=== PATIENT | male | born 1965 | race African-American/Black ===

== ENCOUNTER 2020-07-07 14:33 | Emergency (ER) | payer OTHER, SELFPAY ==
[2020-07-07 14:50] VITALS: BP 142/88; PULSE 90; RESP 17; TEMP 36.7; O2SAT 98; BMI 23.8
--- NOTE | 2020-07-07 14:54 | ED_ITS ---
HPI - URI/Sore Throat General Chief Complaint: Upper Respiratory Symptoms Stated Complaint: cough Time Seen by Provider: 07/07/20 14:52 Source: patient Mode of arrival: ambulatory Limitations: no limitations History of Present Illness HPI Narrative: comes in today for COVID-19 testing. States he has had some rhinorrhea / congestion and mild dry cough since yesterday. No recent travel or sick contacts. MD elicited complaint: cough, rhinorrhea and nasal congestion Onset (ago): day(s) (1 days ) Consistency: intermittent Description of mucous: clear Associated symptoms: denies other symptoms Related Data Allergies Allergy/AdvReac Type Severity Reaction Status Date / Time No Known Allergies Allergy Unknown Verified 07/07/20 14:52 Review of Systems Review of Systems: Constitutional: No Weight loss, No Fever, No Chills, No Night Sweats, No Fatigue, No Malaise ENT/Mouth: No Hearing loss, No Ear Pain, + Nasal Congestion, No Sinus Pain, No Hoarseness, No sore throat, + Rhinorrhea, No Swallowing Difficulty Eyes: No Eye Pain, No Swelling, No Redness, No Foreign Body, No Discharge, No Vision Changes Cardiovascular: No Chest Pain, No SOB, No Dyspnea on Exertion, No Orthopnea, No Edema, No Palpitations Respiratory: No Cough, No Sputum, No Wheezing, No Dyspnea Gastrointestinal: No Nausea, No Vomiting, No Diarrhea, No Constipation, No abdominal Pain, No Hematochezia, No Melena Genitourinary: no irregular bleeding, No Dysuria, No Urinary Frequency, No Hematuria, No Urinary Incontinence, No Urgency, No Flank Pain, No Urinary Flow Changes, No Hesitancy Musculoskeletal: No joint pain, No Myalgias, No Joint Swelling Skin: No Skin Lesions, No rash Neuro: No Weakness, No Numbness, No Paresthesias, No Loss of Consciousness, No D izziness, No Headache Psych: No Social Issues Heme/Lymph: No Bruising, No Bleeding,No Lymphadenopathy Endocrine: No Polyuria, No Polydipsia, No Temperature Intolerance Yes all other systems are reviewed and are negative [facility] Past Medical History Medical History (Updated 07/07/20 @ 14:59 by Solomon Enriquez NP) No known health problems Social History Social History Advance Directives: No Advance Directives Information Provided: No Physical Exam Vital Signs: Vital Signs: Vital Signs Temp Pulse Resp BP Pulse Ox 07/07/20 14:50 98.0 F 90 17 142/88 H 98 Body Mass Index 23.8 Reviewed Const: General: cooperative and healthy appearing; No acute distress or int oxicated appearing Nutritional Appearance: average body habitus Orientation/consciousness: patient oriented x3 HENMT: Head: Yes normal to inspection Ears: hearing grossly normal bilaterally Eyes: General: appearance normal, both eyes and all related structures Visual Narvaez: normal visual narvaez by confrontation Neck: Neck: Yes normal visual inspection and No tender Thyroid: Thyroid normal Chest: Chest palpation & inspection: normal inspection of the chest Resp: Effort & Inspection: normal respiratory effort Cardio: Jugular venous distension: no JVD GI: Inspection: Yes normal to inspection Percussion: Yes normal to percussion Auscultation: normal bowel sounds : General: Yes no CVA tenderness Back/Spine/Pelvis: Back: no CVA tenderness Skin: General skin exam: no rashes or lesions noted Neuro: General: patient oriented x3 Extrem: General: Yes normal to inspection Discharge Plan Discharge Clinical Impression: Viral infection Patient Disposition: Home, Self-Care Instructions: Viral Syndrome (ED) Additional Instructions: Based on your symptoms and history we have sent a COVID-19. Although your RESULT IS PENDING at this time. ? RESULTS should return within 72 hours. ? At this time you will be contacted with either NEGATIVE OR POSITIVE results. -Please wait until we contact you for your results. At this time you will be okay for discharge. Please plan for self quarantine for up to 14 days. Do not expose yourself to others. You may not go to work. If testing does come back negative you may return to activities as long as you are no longer having any symptoms for at least 3 days. Please continue to follow cold instructions and wash your hands frequently. You may take Tylenol as directed on the bottle for pain or fever. Patient seen in the emergency department on 03/16/2020 and should be excused from work until negative test results AND until 72 hours without any symptoms AND at least 10 days have passed since symptoms first appeared or since last exposure to COVID-19 positive patient CDC Guidelines for home isolation: - Stay away from others - WEAR A MASK if you are sick AND STAY HOME - Cover your mouth and nose with a tissue when you cough or sneeze. Dispose of tissues in a lined trash can and wash your hands immediately with soap and water for at least 20 seconds. If soap and water are not available, clean hands with alcohol-based hand passenger representative that contains at least 60% alcohol. - Clean your hands often with soap and water for at least 20 seconds - Avoid touching your eyes, nose and mouth with unwashed hands - Do not share dishes, drinking glasses, cups, eating utensils, towels, or bedding with other people in your home. After using these items, wash them thoroughly with soap and water or put in the pound attendant. - Clean high-touch surfaces in your isolation area ( sick room and bathroom) every day; let a caregiver clean and disinfect high-touch surfaces in other areas of the home. Clean the area or item with soap and water or another detergent if it is dirty. Then, use a household disinfectant. - Limit contact with pets and animals: If you must care for a pet, wash your hands before and after interacting with them Referrals: ED Physician,Generic [Emergency Provider] - 2 days ( Your primary care doctor via PHONE VISIT )
== END 2020-07-07 15:25 | disposition home or self-care (01) ==
PROVIDERS: Nurse Practitioner Primary Care; Emergency Provider Emergency Medicine
DX: B34.9 Viral infection, unspecified (principal); Z20.828 Contact with and (suspected) exposure to other viral communicable diseases; R05 Cough
CPT/HCPCS: 87635; 99283

== ENCOUNTER 2023-07-06 09:11 | Emergency (ER) | payer OTHER, SELFPAY ==
[2023-07-06] VITALS (7 sets, daily range): BP systolic 126–140; BP diastolic 73–90; PULSE 51–65; RESP 16–18; TEMP 36.5–36.8; O2SAT 98–100; BMI 26.0
--- NOTE | ~2023-07-06 | XR_ITS ---
EXAMINATION: XR CHEST CLINICAL INFORMATION: Chest pain COMPARISON: Chest 04/25/2018 TECHNIQUE: Frontal view of the chest was obtained. 9:48 AM FINDINGS: No significant abnormality is noted involving the heart, lungs, mediastinum, bony thorax or soft tissues. XR/XR chest 1V IMPRESSION: No acute disease.
--- NOTE | 2023-07-06 09:14 | ECG_ITS ---
Test Reason : CHEST PAIN Blood Pressure : / mmHG Vent. Rate : 066 BPM Atrial Rate : 066 BPM P-R Int : 186 ms QRS Dur : 086 ms QT Int : 398 ms P-R-T Axes : 059 044 044 degrees QTc Int : 417 ms Normal sinus rhythm Nonspecific ST abnormality Lateral leads Borderline ECG When compared with ECG of 25-APR-2018 21:09, Heart rate has decreased Referred By: Manoj Ott Electronically Signed By:MACK LLOYD MD
--- NOTE | 2023-07-06 09:23 | PC.NURSE ---
DELAY IN EKG DUE TO PROBLEM WITH MACHINE. BIOMED NOTIFIED OF PROBLEM.
[2023-07-06 10:05] LABS: MANUAL DIFF FLAG NO
[2023-07-06 10:08] LABS: Basophils Absolute Auto 0.1 X10*3/uL (0.0-0.2); Basophils Percent Auto 0.7 % (0-2); Eosinophils Absolute Auto 0.2 X10*3/uL (0.0-0.4); Eosinophils Percent Auto 2.3 % (0-4); Hemoglobin 13.6 g/dl (14.0-18.0); Imm Gran Abs Auto 0.01 X10*3/uL (0.00-0.03); Imm Gran Pct Auto 0.1 % (0.0-0.4); Lymphocytes Percent Auto 28.2 % (20-40); Mean Corpuscular HGB Conc 33.2 g/dl (31.0-36.0); Mean Corpuscular Hemoglobin 26.8 pg (27.0-33.0); Mean Corpuscular Volume 80.9 fL (80.0-98.0); Mean Platelet Volume 9.4 fL (9.4-12.4); Monocytes Absolute Auto 0.5 X10*3/uL (0.1-1.2); Monocytes Percent Auto 7.3 % (2-11); Neutrophils Absolute Auto 4.4 x10*3/uL (2.0-8.3); Neutrophils Percent Auto 61.4 % (45-73); Platelet Count 294 X10*3/uL (160-400); Red Blood Count 5.07 X10*6/uL (4.60-5.80); Red Cell Distribution Width 14.5 % (11.0-16.0); White Blood Count 7.1 X10*3/uL (4.8-10.8)
[2023-07-06 10:21] LABS: Alanine Aminotransferase 18 U/L (0-40); Alkaline Phosphatase 84 U/L (39-117); Anion Gap 12 (12-20); Aspartate Amino Transferase 21 U/L (5-37); Bilirubin Total 0.4 mg/dL (0.0-1.0); Blood Urea Nitrogen 9 mg/dL (9-16); Carbon Dioxide 25 mmol/L (22-29); Chloride 109 mmol/L (96-108); Creatinine Clr Calc Pharmacy 56.8; Estimated Glomerular Filt Rate > 60; Glucose Random 116 mg/dL (60-115); Magnesium 2.2 mg/dL (1.6-2.6); Sodium 142 mmol/L (135-145); Total Protein 6.6 g/dL (6.5-8.0)
[2023-07-06 10:23] LABS: COVID-19 Test Negative (Negative); IDNOW Serial# BCCEAD1C
[2023-07-06 10:28] LABS: Troponin-I High Sensitivity 16.5 ng/L (<3.5-35.0)
--- NOTE | 2023-07-06 10:33 | PC.NURSE ---
PA at bedside during assessment. Pt reporting R sided chest pain starting this morning, he was able to eat his breakfast prior to coming in. Pt has GA history. He is able to talk in full sentences. stable on RA. IV placed, labs obtained and sent. awaiting further orders at this time.
[2023-07-06 10:43] LABS: INTERNATIONAL NORM RATIO 0.8 (0.9-1.1); Prothrombin Time 10.2 SEC (11.1-13.3)
[2023-07-06 10:51] LABS: D Dimer High Sensitivity < 150 NG/ML
--- NOTE | 2023-07-06 11:19 | ED.CHESTPAIN ---
HPI - Chest Pain General Chief Complaint: Chest Pain Stated Complaint: chest pain into r arm neck Time Seen by Provider: 07/06/23 09:55 Source: patient Mode of arrival: ambulatory Limitations: no limitations History of Present Illness HPI narrative: This is a 58-year-old male history of former substance abuse, MIs x4, presenting to the emergency department with complaints of sudden onset right-sided chest pain with radiation into neck and right upper extremity with mild complaints of shortness of breath, patient reports he awoke this morning with this, he reports yesterday he was fine and he was just laying around the house, watching TV no strenuous exercise, he tells me the pain is constant nature, severe, holding his chest upon history taking movement makes it worse and so does palpation, reports ? maybe he slept wrong. He reports that his right arm intermittently feels numb and at times he feels dizzy. Denies associated weakness. Denies trauma. No fevers, chills, headache, vision changes, weakness, nausea, vomiting, abdominal pain. Related Data Previous Rx's Medication Instructions Recorded cyclobenzaprine 10 mg tablet 10 mg PO BEDTIME PRN muscle spasm 07/06/23 #7 tabs ketorolac 10 mg tablet 10 mg PO TID PRN pain 5 days #15 07/06/23 tabs Allergies Allergy/AdvReac Type Severity Reaction Status Date / Time No Known Allergies Allergy Unknown Verified 07/07/20 14:52 Review of Systems Review of Systems: Constitutional : No Weight loss, No Fever, No Chills, No Fatigue, No Malaise ENT/Mouth : No sore throat, No Rhinorrhea Eyes: No Eye Pain, No Swelling, No Redness Cardiovascular : + Chest Pain, + SOB, No Dyspnea on Exertion, No Orthopnea, No Edema, No Palpitations Respiratory : No Cough, No Sputum, No Wheezing Gastrointestinal : No Nausea, No Vomiting, No Diarrhea, No Constipation, No abdominal Pain, No Hematochezia, No Melena Genitourinary : No Dysuria, No Urinary Frequency, No Hematuria, Musculoskeletal : No joint pain, No Myalgias, No Joint Swelling Skin : No Skin Lesions, No rash Neuro : No Weakness, No Numbness, + Dizziness, No Headache Psych : No Anxiety/Panic, No Depression All other systems reviewed and are negative Yes all other systems are reviewed and are negative [facility] Past Medical History Attestation statement: The following information was validated with the patient. Source: old records reviewed and nursing notes reviewed Medical History No known health problems Social History Social History Smoked in Last 30 Days: Yes Use of substances other than those prescribed or required for medical reasons: No Advance Directives: No Physical Exam Vital Signs: Vital Signs: Last Vital Signs Temp 98.2 F 07/06/23 10:02 Pulse 54 07/06/23 14:16 Resp 18 07/06/23 14:16 BP 126/81 07/06/23 14:16 Pulse Ox 98 07/06/23 14:16 O2 Del Method Room Air 07/06/23 14:16 BMI result Body Mass Index 26.0 vss Appearance: Alert.? Oriented X3.? No acute distress.? Head: Normocephalic, atraumatic, no step-offs or deformities Eyes: Pupils equal, round and reactive to light.? Neck: Normal inspection.? Neck supple.? CVS: Normal heart rate and rhythm.? Pulses normal.?+ Discomfort with palpation of right anterior chest wall all the way till the clavicle. Respiratory: No respiratory distress.? Breath sounds normal.? Abdomen: Soft and nontender.? Skin: Skin warm and dry.? Normal skin color.? Normal skin turgor.? Extremities: No lower extremity edema.? No calf ttp. 5/5 strength to bilateral upper and lower extremities Neuro: Oriented X 3.? No motor deficit.? No sensory deficit. CN 2-12 intact Course Reevaluation(s) Reevaluation #1: CBC appears to be around normal limits normocytic anemia noted likely patient's based. Chemistry unremarkable. Troponin negative x2 nonischemic EKG . Patient not compaling of CP reports CP resolved completly after toradol. Reports only painful if he presses on the affected area. D-dimer negative. COVID negative. Chest x-ray unremarkable. Patient states he is feeling well and would like to go home peer Educated patient on diagnosis and treatment plan, answered all question, patient verbalizes understanding. At this time patient will be discharged home, advised to return with new or worsening symptoms. Educated on worrisome signs and symptoms and when to return. At this time I feel comfortable discharge home. Time: 14:54 Reevaluation #2: Heart score - 1?points Low Score (0-3 points) Risk of MACE of 0.9-1.7%. Medications Administered Discontinued Medications Generic Name Dose Route Start Last Admin Trade Name Silke PRN Reason Stop Dose Admin Aspirin 324 mg 07/06/23 12:12 07/06/23 12:39 Aspirin 81 Mg Tab.Chew PO 07/06/23 12:13 324 mg ONCE ONE Administration Ketorolac Tromethamine 30 mg 07/06/23 13:45 07/06/23 14:17 Ketorolac Tromethamine 15 Mg/Ml Vial IVPUSH 07/06/23 13:46 30 mg ONCE ONE Administration Morphine Sulfate 4 mg 07/06/23 12:12 07/06/23 12:39 Morphine Sulfate 4 Mg/Ml Cartridge IVPUSH 07/06/23 12:13 4 mg ONCE ONE Administration Protocol Medical Decision Making Medical Decision Making [facility] Narrative: 1100 58-year-old male presents with complaints of chest discomfort with radiation to right-sided neck and right arm. Some associated shortness of breath. Physical exam with slight discomfort palpation to right anterior chest wall. Neurological assessment benign. Breath sounds clear. Concerns for noncardiac related chest pain versus ACS. Unlikely pulmonary embolism, endocarditis, pericarditis, myocarditis. Other differentials include musculoskeletal pain, viral illness. Unlikely pneumonia. Low suspicion for dissection. dizziness likely secondary to pain, unlikely vertigo, posterior stroke or stroke. Plan Labs, imaging, EKG. Differential Diagnosis Differential Diagnoses: The differential diagnosis associated with the presentation includes Concerns for noncardiac related chest pain versus ACS. Unlikely pulmonary embolism, endocarditis, pericarditis, myocarditis. Other differentials include musculoskeletal pain, viral illness. Unlikely pneumonia. Low suspicion for dissection. dizziness likely secondary to pain, unlikely vertigo, posterior stroke or stroke. Admission/Observation Consideration of admission/observation: Escalation of care including admission/observation considered Lab Data [facility] Lab Attestation statement: I reviewed the patient's lab results. 07/06/23 10:01 07/06/23 10:00 Labs: Lab Results 07/06/23 07/06/23 07/06/23 Range/Units 09:58 10:00 10:01 WBC 7.1 (4.8-10.8) X10*3/uL RBC 5.07 (4.60-5.80) X10*6/uL Hgb 13.6 L (14.0-18.0) g/dl Hct 41.0 L (42.0-52.0) % MCV 80.9 (80.0-98.0) fL MCH 26.8 L (27.0-33.0) pg MCHC 33.2 (31.0-36.0) g/dl RDW 14.5 (11.0-16.0) % Plt Count 294 (160-400) X10*3/uL MPV 9.4 (9.4-12.4) fL Immature Gran % (Auto) 0.1 (0.0-0.4) % Neut % (Auto) 61.4 (45-73) % Lymph % (Auto) 28.2 (20-40) % [place] % (Auto) 7.3 (2-11) % Eos % (Auto) 2.3 (0-4) % Baso % (Auto) 0.7 (0-2) % Lymph # (Auto) 2.0 (1.2-4.9) X10*3/uL [place] # (Auto) 0.5 (0.1-1.2) X10*3/uL Eos # (Auto) 0.2 (0.0-0.4) X10*3/uL Baso # (Auto) 0.1 (0.0-0.2) X10*3/uL Abs Immat Gran (auto) 0.01 (0.00-0.03) X10*3/uL Absolute Neuts (auto) 4.4 (2.0-8.3) x10*3/uL Absolute Nucleated RBC 0.000 (0.0-0.012) X10*3/uL Nucleated RBC % (auto) 0.0 (0.0-0.2) /100WBC PT (11.1-13.3) SEC INR (0.9-1.1) D-Dimer High Sensitivty NG/ML Sodium 142 (135-145) mmol/L Potassium 4.0 (3.3-5.1) mmol/L Chloride 109 H (96-108) mmol/L Carbon Dioxide 25 (22-29) mmol/L Anion Gap 12 (12-20) BUN 9 (9-16) mg/dL Creatinine 1.20 (0.5-1.4) mg/dL Estim Creat Clear Calc 56.8 Estimated GFR > 60 Random Glucose 116 H (60-115) mg/dL Calcium 9.0 (8.4-10.2) mg/dL Magnesium 2.2 (1.6-2.6) mg/dL Total Bilirubin 0.4 (0.0-1.0) mg/dL AST 21 (5-37) U/L ALT 18 (0-40) U/L Alkaline Phosphatase 84 (39-117) U/L Troponin I High Sens 16.5 (<3.5-35.0) ng/L Total Protein 6.6 (6.5-8.0) g/dL Albumin 4.0 (3.5-5.0) g/dL COVID-19 (TANK) Negative (Negative) COVID-19 Clin Com See Note 07/06/23 07/06/23 Range/Units 10:31 12:32 WBC (4.8-10.8) X10*3/uL RBC (4.60-5.80) X10*6/uL Hgb (14.0-18.0) g/dl Hct (42.0-52.0) % MCV (80.0-98.0) fL MCH (27.0-33.0) pg MCHC (31.0-36.0) g/dl RDW (11.0-16.0) % Plt Count (160-400) X10*3/uL MPV (9.4-12.4) fL Immature Gran % (Auto) (0.0-0.4) % Neut % (Auto) (45-73) % Lymph % (Auto) (20-40) % [place] % (Auto) (2-11) % Eos % (Auto) (0-4) % Baso % (Auto) (0-2) % Lymph # (Auto) (1.2-4.9) X10*3/uL [place] # (Auto) (0.1-1.2) X10*3/uL Eos # (Auto) (0.0-0.4) X10*3/uL Baso # (Auto) (0.0-0.2) X10*3/uL Abs Immat Gran (auto) (0.00-0.03) X10*3/uL Absolute Neuts (auto) (2.0-8.3) x10*3/uL Absolute Nucleated RBC (0.0-0.012) X10*3/uL Nucleated RBC % (auto) (0.0-0.2) /100WBC PT 10.2 L (11.1-13.3) SEC INR 0.8 L (0.9-1.1) D-Dimer High Sensitivty < 150 NG/ML Sodium (135-145) mmol/L Potassium (3.3-5.1) mmol/L Chloride (96-108) mmol/L Carbon Dioxide (22-29) mmol/L Anion Gap (12-20) BUN (9-16) mg/dL Creatinine (0.5-1.4) mg/dL Estim Creat Clear Calc Estimated GFR Random Glucose (60-115) mg/dL Calcium (8.4-10.2) mg/dL Magnesium (1.6-2.6) mg/dL Total Bilirubin (0.0-1.0) mg/dL AST (5-37) U/L ALT (0-40) U/L Alkaline Phosphatase (39-117) U/L Troponin I High Sens 16.2 (<3.5-35.0) ng/L Total Protein (6.5-8.0) g/dL Albumin (3.5-5.0) g/dL COVID-19 (TANK) (Negative) COVID-19 Clin Com Independent Interpretation I performed an independent interpretation of an: EKG ( Ventricular rate of 66, NM normal, QRS normal, QT / QTC normal. EKG with no ST elevations or inversions concerning for acute ischemia) and Plain X-Ray (XR/XR chest 1V IMPRESSION: No acute disease.) Radiology Impression Discussion of test interpretation with radiology: I have reviewed the radiologist's reading. Prescription Management I considered prescription management with: Pain Medication and Other (cyyclobenzaprine ) Chronic Conditions Patient?s care impacted by: Other (former cocaine abuse ( snorting)) Critical Care Time Critical Care Time Critical Care Time: No Discharge Plan Discharge Clinical Impression: Chest pain Patient Disposition: Home, Self-Care Instructions: Chest Pain (ED), Chest Wall Pain (ED) Additional Instructions: Take your medications as prescribed. If you were prescribed antibiotics today, it is important that you take your medication to their entirety, do not skip any doses, do not finish them early. Follow-up with your primary care provider this week. Return to the emergency department with new or worsening symptoms. Such as fevers, chills, chest pain, shortness of breath, nausea, vomiting, dizziness, headache, vision changes, lethargy In case of emergency call 911 Toradol has been sent to your pharmacy, you tolerated this well in the department. Please take this as prescribed do not take this with ibuprofen, or other NSAIDs, do not mix this with alcohol. Side effects of this medication including increased risk for bleeding and possible kidney injury. Prescriptions: New cyclobenzaprine 10 mg tablet 10 mg PO BEDTIME PRN (Reason: muscle spasm) Qty: 7 0RF ketorolac 10 mg tablet 10 mg PO TID PRN (Reason: pain) 5 Days Qty: 15 0RF [place] [facility] [place] [facility] [place] Group[place] - 2 days Kimberly Hylton MD [Primary Care Provider] - 2 days Stand Alone Forms: Work/School Release
[2023-07-06] MEDS: Morphine Sulfate 4 MG/ML CARTRIDGE IVPUSH (12:39)
[2023-07-06] MEDS: Aspirin 81 MG TAB.CHEW 324 MG PO (12:39)
[2023-07-06 13:01] LABS: Troponin-I High Sensitivity 16.2 ng/L (<3.5-35.0)
[2023-07-06] MEDS: Ketorolac Tromethamine 15 MG/ML VIAL 30 MG IVPUSH (14:17)
== END 2023-07-06 15:56 | disposition home or self-care (01) ==
PROVIDERS: Physician Assistant; Emergency Provider Emergency Medicine; PCP Internal Medicine
DX: R07.89 Other chest pain (principal); M54.2 Cervicalgia; R06.02 Shortness of breath; M79.601 Pain in right arm; Z11.52 Encounter for screening for COVID-19; Z20.822 Contact with and (suspected) exposure to COVID-19; Z79.899 Other long term (current) drug therapy
CPT/HCPCS: 36415; 71045; 80053; 83735; 84484; 85025; 85379; 85610; 87635; 93005; 96374; 96375; 99284; 99285; J1885; J2270

== ENCOUNTER 2024-02-29 12:16 | Emergency (ER) | payer OTHER, SELFPAY ==
[2024-02-29 14:03] VITALS: BP 117/73; PULSE 70; RESP 20; TEMP 36.3; O2SAT 99; BMI 24.0
--- NOTE | 2024-02-29 14:05 | ED_ITS ---
HPI - General Adult General Chief complaint: Abdominal Pain Stated complaint: LLQ pain Source: patient Mode of arrival: ambulatory Limitations: no limitations History of Present Illness ED Provider: Martha Villarreal PA-C HPI narrative: Patient is a 58 year old assigned male at with no reported medical history presenting to the emergency department today with left lower quadrant abdominal pain. Patient states that over the last week he has been having LLQ abdominal pain. Patient denies any dizziness, lightheadedness, nausea, vomiting, fever, chills, blurry vision, double vision, loss of vision, chest pain, difficulty breathing, shortness of breath, back pain, night sweats, pain with urination, increased urinary frequency, increased urinary urgency, blood in his urine or stool, syncope or a near syncopal episode, recent trauma or falls, bowel incontinence, bladder incontinence, or any other complaints at this time. Onset (ago): week(s) (1) Location: abdomen and left Severity: mild Severity scale (1-10): 3 Quality: aching Pain Consistency: constant Relieving factors: none Exacerbating factors: none Associated symptoms: denies other symptoms Treatments prior to arrival: none Related Data Previous Rx's ?Medication ?Instructions ?Recorded cyclobenzaprine 10 mg tablet 10 mg PO BEDTIME PRN muscle spasm 07/06/23 #7 tabs ketorolac 10 mg tablet 10 mg PO TID PRN pain 5 days #15 07/06/23 tabs Allergies Allergy/AdvReac Type Severity Reaction Status Date / Time No Known Allergies Allergy Unknown Verified 02/29/24 14:04 Review of Systems 2 Constitutional: Constitutional: Reports no additional constitutional complaints, Denies chills, Denies fever(s) and Denies night sweats Eyes: Eyes: Reports no additional eye complaints, Denies blurry vision, Denies change in vision, Denies diplopia, Denies eye discharge, Denies loss of vision and Denies eye pain ENT: Denies dizziness Cardiovascular: Cardiovascular: Reports no additional cardiovascular complaints, Denies chest pain, Denies lightheadedness, Denies Loss of Consciousness and Denies dyspnea Respiratory: Respiratory: Reports no additional respiratory complaints and Denies dyspnea Gastrointestinal: Gastrointestinal: Reports no additional gastrointestinal complaints, Reports abdominal pain (left lower quadrant), Denies melena, Denies hematochezia, Denies change in bowel habits and Denies change in stool character Genitourinary: Genitourinary: Reports no additional male genitourinary complaints, Denies hematuria, Denies oliguria, Denies difficulty urinating, Denies dysuria, Denies urinary frequency, Denies urinary hesitancy, Denies urinary incontinence and Denies urinary urgency Musculoskeletal: Musculoskeletal: Reports no additional musculoskeletal complaints, Denies numbness and Denies tingling Neurologic: Denies dizziness, Denies loss of vision, Denies numbness and Denies tingling Psychiatric: Psychiatric: Reports no additional psychiatric complaints Endocrine: Endocrine: Reports no additional endocrine complaints Hematologic/Lymphatic: Hematologic/Lymphatic: Reports no additional hematologic/lymphatic complaints Allergic/Immunologic: Allergic/Immunologic: Reports no additional allergic/immunologic complaints [facility] Past Medical History Attestation statement: The following information was validated with the patient. Source: old records reviewed and nursing notes reviewed Medical History No known health problems Social History Social History Advance Directives: No Advance Directives Information Provided: No Physical Exam ED Vital Signs: BMI result Body Mass Index 24.0 Const General: cooperative, no acute distress, alert and awake Nutritional Appearance: well nourished Orientation/consciousness: patient oriented x3 Limitations: no limitations HENMT Head: Yes normal to inspection and Yes atraumatic Ears: hearing grossly normal bilaterally and external ears normal General nose exam: Normal external nose present, no nasal discharge noted and no epistaxis Face and sinus: Yes normal facial exam, No abrasion and No laceration Mouth: Normal oral and palatal mucosa present, no drooling and no muffled voice Eyes General: appearance normal, both eyes and all related structures Periorbital: periorbital findings normal Eyelids: Yes eyelids normal Conjunctivae: conjunctivae normal Pupils: Equal, round and reactive pupils present EOM: EOMs intact bilaterally Neck Neck: Yes normal visual inspection, Yes full ROM and Yes no lymphadenopathy Chest Chest palpation & inspection: normal inspection of the chest Resp Effort & Inspection: normal respiratory effort and able to speak in complete sentences Neuro General: patient oriented x3 and moves all extremities Cranial nerves: Yes Equal, round and reactive pupils present Cognition (Neuro): normal cognition Motor exam (neuro): 5/5 motor strength present throughout Sensory Exam: Normal double simultaneous stimulation for sensation Coordination: [id number] test normal Extrem General: Yes normal to inspection, Yes full ROM and Yes capillary refill normal Psych Appearance: grossly normal Mental Status: mental status grossly normal Affect: normal affect Attitude: cooperative Thought process: Normal thought process present Thought content: Normal thought content present Insight: Good insight present (Psych) Course Course Course Narrative: RME performed by Martha Villarreal PA-C. Patient is a 58 year old assigned male at presenting to the emergency department with left lower abdominal pain. Patient states over the last week he has had left lower quadrant abdominal pain that got worse last night after standing up from sitting. Detailed physical exam and review of systems are deferred to the muffle worker. Labs and swabs ordered. Patient placed back in the waiting room pending room availability and results. Medical Decision Making Medical Decision Making [facility] Narrative: Patient is a 58 year old assigned male at with no reported medical history presenting to the emergency department today with left lower quadrant abdominal pain. Patient's limited physical exam performed in triage was unremarkable. Patient's blood work was unremarkable. Patient left the department without completing treatment. Patient left the department before myself or any of the other emergency department clinicians could explain to or review with the patient; physical exam findings, test results, need or lack there of for additional testing, need or lack there of for a procedure to be performed, need or lack there of for hospital admission / transfer, need or lack there of for prescription medication, treatment options, or a treatment plan. Differential Diagnosis Differential Diagnoses: The differential diagnosis associated with the presentation includes Abdominal pain Admission/Observation Consideration of admission/observation: Escalation of care including admission/observation considered Patient would have been admitted to the hospital had he completed his work up and it had any findings where hospital admission was appropriate, his clinical presentation warranted hospital admission, had myself or any other emergency cutting department supervisor had the ability to discuss need or lack there of for hospital admission, and the patient hadn't left the department without completing treatment. Lab Data [facility] Lab Attestation statement: I reviewed the patient's lab results. My interpretation of these results are in the MDM Rationale portion of this note. 02/29/24 14:25 02/29/24 14:25 Labs: Lab Results 02/29/24 Range/Units 14:25 WBC 4.9 (4.8-10.8) X10*3/uL RBC 5.29 (4.60-5.80) X10*6/uL Hgb 14.3 (14.0-18.0) g/dl Hct 42.3 (42.0-52.0) % MCV 80.0 (80.0-98.0) fL MCH 27.0 (27.0-33.0) pg MCHC 33.8 (31.0-36.0) g/dl RDW 14.5 (11.0-16.0) % Plt Count 331 (160-400) X10*3/uL MPV 8.6 L (9.4-12.4) fL Immature Gran % (Auto) 0.4 (0.0-0.4) % Neut % (Auto) 40.6 L (45-73) % Lymph % (Auto) 44.5 H (20-40) % [place] % (Auto) 9.8 (2-11) % Eos % (Auto) 3.7 (0-4) % Baso % (Auto) 1.0 (0-2) % Lymph # (Auto) 2.2 (1.2-4.9) X10*3/uL [place] # (Auto) 0.5 (0.1-1.2) X10*3/uL Eos # (Auto) 0.2 (0.0-0.4) X10*3/uL Baso # (Auto) 0.1 (0.0-0.2) X10*3/uL Abs Immat Gran (auto) 0.02 (0.00-0.03) X10*3/uL Absolute Neuts (auto) 2.0 (2.0-8.3) x10*3/uL Absolute Nucleated RBC 0.000 (0.0-0.012) X10*3/uL Nucleated RBC % (auto) 0.0 (0.0-0.2) /100WBC Sodium 141 (135-145) mmol/L Potassium 4.2 (3.3-5.1) mmol/L Chloride 108 (96-108) mmol/L Carbon Dioxide 28 (22-29) mmol/L Anion Gap 9 L (12-20) BUN 9 (9-16) mg/dL Creatinine 1.01 (0.5-1.4) mg/dL Estim Creat Clear Calc 67.5 Estimated GFR > 60 Random Glucose 83 (60-115) mg/dL Calcium 9.7 D (8.4-10.2) mg/dL Magnesium 2.2 (1.6-2.6) mg/dL Total Bilirubin 0.2 (0.0-1.0) mg/dL AST 15 (5-37) U/L ALT 16 (0-40) U/L Alkaline Phosphatase 107 (39-117) U/L Total Protein 7.1 (6.5-8.0) g/dL Albumin 4.1 (3.5-5.0) g/dL Influenza Type A (PCR) NEGATIVE (Negative) Influenza Type B (PCR) NEGATIVE (Negative) RSV RNA Qual (PCR) NEGATIVE (Negative) SARS-CoV-2 RNA (RT-PCR) NEGATIVE (Negative) Discharge Plan Discharge Clinical Impression: Abdominal pain Patient Disposition: Left W/O Completing Treatment Prescriptions: No Action cyclobenzaprine 10 mg tablet 10 mg PO BEDTIME PRN (Reason: muscle spasm) Qty: 7 0RF ketorolac 10 mg tablet 10 mg PO TID PRN (Reason: pain) 5 Days Qty: 15 0RF Discharge Date/Time: 02/29/24 21:21
[2024-02-29 14:29] LABS: MANUAL DIFF FLAG NO
[2024-02-29 14:32] LABS: Basophils Absolute Auto 0.1 X10*3/uL (0.0-0.2); Eosinophils Absolute Auto 0.2 X10*3/uL (0.0-0.4); Eosinophils Percent Auto 3.7 % (0-4); Hematocrit 42.3 % (42.0-52.0); Hemoglobin 14.3 g/dl (14.0-18.0); Imm Gran Abs Auto 0.02 X10*3/uL (0.00-0.03); Imm Gran Pct Auto 0.4 % (0.0-0.4); Lymphocytes Absolute Auto 2.2 X10*3/uL (1.2-4.9); Lymphocytes Percent Auto 44.5 % (20-40); Mean Corpuscular HGB Conc 33.8 g/dl (31.0-36.0); Mean Platelet Volume 8.6 fL (9.4-12.4); Monocytes Absolute Auto 0.5 X10*3/uL (0.1-1.2); Monocytes Percent Auto 9.8 % (2-11); Neutrophils Percent Auto 40.6 % (45-73); Platelet Count 331 X10*3/uL (160-400); Red Blood Count 5.29 X10*6/uL (4.60-5.80); Red Cell Distribution Width 14.5 % (11.0-16.0); White Blood Count 4.9 X10*3/uL (4.8-10.8)
[2024-02-29 14:57] LABS: Alanine Aminotransferase 16 U/L (0-40); Albumin Level 4.1 g/dL (3.5-5.0); Alkaline Phosphatase 107 U/L (39-117); Anion Gap 9 (12-20); Aspartate Amino Transferase 15 U/L (5-37); Bilirubin Total 0.2 mg/dL (0.0-1.0); Blood Urea Nitrogen 9 mg/dL (9-16); Calcium 9.7 mg/dL (8.4-10.2); Carbon Dioxide 28 mmol/L (22-29); Chloride 108 mmol/L (96-108); Creatinine Clr Calc Pharmacy 67.5; Estimated Glomerular Filt Rate > 60; Glucose Random 83 mg/dL (60-115); Magnesium 2.2 mg/dL (1.6-2.6); Potassium 4.2 mmol/L (3.3-5.1); Sodium 141 mmol/L (135-145); Total Protein 7.1 g/dL (6.5-8.0)
[2024-02-29 15:11] LABS: Influenza A PCR NEGATIVE (Negative); Influenza B PCR NEGATIVE (Negative); Resp Syncy Virus RNA Qual PCR NEGATIVE (Negative); SARS COV2 PCR INHOUSE NEGATIVE (Negative)
== END 2024-02-29 21:21 | disposition left against medical advice (07) ==
PROVIDERS: Physician Assistant Medical; Emergency Provider Emergency Medicine; PCP Internal Medicine
DX: R10.32 Left lower quadrant pain (principal)
CPT/HCPCS: 0241U; 80053; 83735; 85025; 99281; 99283

== ENCOUNTER 2024-03-09 08:38 | Outpatient (AMB) | payer OTHER, SELFPAY ==
--- NOTE | 2024-03-09 09:07 | MHC.PC.OV ---
Vital Signs 03/09/24 09:09 Height 5 ft 4 in BP 124/72 Blood Pressure Location Lt brachial Position Sitting Pulse 69 Pulse Source Pulse Oximeter Intake Visit Reasons: [facility] Intake Note: Patient is a new patient here to establish care for Abdpmenial pain, Hx of cocaine use, hx of heart attack. Transferring care from unknown. Medical records have not been requested and have not received. Clay Modeler Required: No Automatic Chief: Not Required per policy Accompanied by: Self / Same As Patient Allergies No Known Allergies Allergy (Unknown, Verified 03/09/24 09:08) Medication List - Last Reconciled 03/09/24 by Miguel Victor MD cyclobenzaprine 10 mg PO BEDTIME PRN ketorolac 10 mg PO TID PRN 5 days Tobacco use date assessed: 03/09/24 Dental Screening Dental Screen Date: 03/09/24 Did you have a dental visit in the last 12 months?: Yes Did you have a dental problem in the last 6 months where you did not have access to dental care?: No Was dental information given to patient?: Patient has dentist HPI [facility] HPI Details 58-year-old male presents to the office to establish his care. He was seeing Dr. Hoang till 2018. He would like to reestablish his care. Past medical history significant for substance use disorder and cardiovascular disease. Patient is no longer using cocaine. He has had 3 heart attacks in the remote past. Currently on no medications for the same. Two weeks ago complaining of abdominal pain and went to the emergency room. Blood work was done but patient did not state due to the long wait. Pain symptoms are better. Regular bowel movements. Normal appetite. No loss of weight. Patient had a colonoscopy earlier than 2017. Continues to smoke 10 cigarettes a day. [facility] Medical History (Updated 03/09/24 @ 10:00 by Miguel Victor MD) Coronary artery disease Tobacco use disorder Substance use disorder Social History Patient Tobacco Use Status: Never used Tobacco e-Cigarette/Vaping Use: Never Used Second Hand Smoke Exposure: No service: No Physical exam (Primary Care) Vital Signs: Last Vital Signs Pulse 69 03/09/24 09:09 BP 124/72 03/09/24 09:09 Care Plan Goal for BP management: Blood pressure is in range. Tobacco/Smoking Status: Tobacco use Status Tobacco use date assessed 03/09/24 03/09/24 09:10 Patient Tobacco Use Status Never used Tobacco 03/09/24 09:10 e-Cigarette/Vaping Use Never Used 03/09/24 09:10 Const General: cooperative and healthy appearing Nutritional Appearance: well nourished Orientation/consciousness: patient oriented x3 Limitations: no limitations HENMT Head: Yes normal to inspection Eyes General: appearance normal, both eyes and all related structures Neck Neck: Yes normal visual inspection Chest Chest palpation & inspection: normal palpation of entire chest wall Resp Effort & Inspection: normal respiratory effort Other: Abdomen: Bowel sounds positive. No organomegaly. Mass palpable in the left lower quadrant, firm consistency. Neuro General: patient oriented x3 Assessment and Plan Assessment & Plan (1) Coronary artery disease: Code(s): I25.10 - Atherosclerotic heart disease of [place] coronary artery without angina pectoris Plan: Statin added to the regimen. Blood work has been ordered. Will call with the results. (2) Tobacco use disorder: Code(s): F17.200 - Nicotine dependence, unspecified, uncomplicated Plan: Counseling to quit smoking done. (3) Substance use disorder: Code(s): F19.90 - Other psychoactive substance use, unspecified, uncomplicated Plan: Patient is currently not abusing any drugs. (4) Left lower quadrant abdominal mass: Code(s): R19.04 - Left lower quadrant abdominal swelling, mass and lump Plan: An ultrasound of the abdomen has been requested. Inflammatory markers have been requested. Orders: Orders Thyroid Stimulating Hormone Today R19.04 - Left lower quadrant abdominal swelling, mass and lump US abdomen complete Today R19.04 - Left lower quadrant abdominal swelling, mass and lump Erythrocyte Sedimentation Rate Today R19.04 - Left lower quadrant abdominal swelling, mass and lump C Reactive Protein Today R19.04 - Left lower quadrant abdominal swelling, mass and lump UA and rflx microscopic Today R19.04 - Left lower quadrant abdominal swelling, mass and lump Coding Level of Care Code New Pt Level 4 (78421) Complex EM visit Add On G2211 Diagnoses Coronary artery disease I25.10 Tobacco use disorder F17.200 Substance use disorder F19.90 Left lower quadrant abdominal mass R19.04
[2024-03-09 09:09] VITALS: BP 124/72; PULSE 69
== END 2024-03-09 10:32 | disposition home or self-care (01) ==
LOC: HO.HMGH 08:38
PROVIDERS: PCP Internal Medicine; Visit Provider Internal Medicine
DX: I25.10 Atherosclerotic heart disease of native coronary artery without angina pectoris (principal); F17.200 Nicotine dependence, unspecified, uncomplicated; F19.90 Other psychoactive substance use, unspecified, uncomplicated; R19.04 Left lower quadrant abdominal swelling, mass and lump
CPT/HCPCS: 99204; G2211

== ENCOUNTER 2024-03-23 07:34 | Outpatient (REF) | payer OTHER, SELFPAY ==
--- NOTE | ~2024-03-23 | US_ITS ---
EXAMINATION: US ABDOMEN LIMITED CLINICAL INFORMATION: Left lower quadrant pain. Mass.. COMPARISON: None available. TECHNIQUE: Targeted sonography left lower quadrant. FINDINGS: Scanning in the area of palpable concern shows a small lymph node at 10 x 4 mm. No evidence for fluid collections or a hernia. US/US abdomen limited IMPRESSION: No hernia seen.
[2024-03-23 09:09] LABS: Erythrocyte Sedimentation Rate 4 MM/HR (0-15)
[2024-03-23 09:17] LABS: C Reactive Protein 0.71 mg/dL (< or = 0.50)
[2024-03-23 09:24] LABS: Thyroid Stimulating Hormone 1.38 uIU/mL (0.32-4.0)
[2024-03-23 09:40] LABS: Appearance Urine Clear; Color Urine Yellow; Glucose Urine UA Negative (Negative); Leukocyte Esterase Urine Negative (Negative); Nitrite Urine Negative (Negative); Specific Gravity - Urine >= 1.030 (1.005-1.025); Urine Blood Negative (Negative); Urine Ketones 15 mg/dL (Negative); Urine Protein Trace mg/dL (Neg-Trace)
== END 2024-03-23 07:35 | disposition home or self-care (01) ==
LOC: HO.US 07:34
PROVIDERS: PCP Internal Medicine; Visit Provider Internal Medicine
DX: R19.04 Left lower quadrant abdominal swelling, mass and lump (principal)
CPT/HCPCS: 36415; 76705; 81003; 84443; 85652; 86140

== ENCOUNTER 2024-05-11 06:47 | Outpatient (REF) | payer OTHER, SELFPAY ==
--- NOTE | ~2024-05-11 | CT_ITS ---
EXAMINATION: CT ABDOMEN AND PELVIS WITH CONTRAST CLINICAL INFORMATION: Abdominal pain and mass, rule out hernia COMPARISON: February 17, 2018 and recent abdominal ultrasound TECHNIQUE: Multidetector volumetric images were obtained from the superior aspect of the liver through the pubic symphysis following administration 85 mL of Omnipaque 350 intravenous contrast. Sagittal and coronal reformatted images were obtained on the technologist's workstation. Oral contrast administered to toe also. Oral contrast: No This CT examination was performed using dose optimization techniques as appropriate, variously including the following: *Automated exposure control *Adjustment of mA and/or kV according to patient size (this includes techniques or standardized protocols for targeted exams where dose is matched to indication/reason for exam; i.e. extremities or head) *Use of iterative reconstruction technique DLP: 219 mGy-cm FINDINGS: LUNG BASES: The visualized lung bases are unremarkable. LIVER, GALLBLADDER, AND BILIARY TREE: The liver is normal in size, shape, and attenuation. No focal hepatic lesion or biliary ductal dilatation is present. The gallbladder is unremarkable with no evidence of radiopaque gallstones, gallbladder wall thickening, or obvious pericholecystic inflammatory changes. PANCREAS: Unremarkable. SPLEEN: Unremarkable. ADRENAL GLANDS: Unremarkable. KIDNEYS AND URETERS: The kidneys are normal in size, shape, and attenuation. No hydronephrosis, hydroureter, or calculi seen. No perinephric stranding. BLADDER: Unremarkable. GASTROINTESTINAL TRACT: The small and large bowel are unremarkable. The appendix is unremarkable. ABDOMINAL WALL: No significant hernia is appreciated. LYMPH NODES: Normal. VASCULAR: Unremarkable. PELVIC VISCERA: Unremarkable. OSSEOUS STRUCTURES: Unremarkable. CT/CT abdomen pelvis w IV con IMPRESSION: No significant abnormality. Fleischner guidelines were followed. Electronically signed by: Dorita Argueta MD 05/11/2024 03:29 PM EDT
[2024-05-11] MEDS: iohexoL 350 MG/ML 75 ML INFUS..BTL 85 ML IV (09:31)
[2024-05-11] MEDS: Barium Sulfate Oral (Mocha) 450 ML ORAL.SUSP 900 ML PO (09:32)
[2024-05-11 14:16] LABS: Creatinine POC 1.4 mg/dL (0.5-1.4); GFR POC 56
== END 2024-05-11 06:48 | disposition home or self-care (01) ==
LOC: HO.CT 06:47
PROVIDERS: PCP Internal Medicine; Visit Provider Internal Medicine
DX: R19.04 Left lower quadrant abdominal swelling, mass and lump (principal)
CPT/HCPCS: 74177; 82565; Q9967

== ENCOUNTER 2024-05-16 15:04 | Outpatient (AMB) | payer OTHER, SELFPAY ==
[2024-05-16 15:18] VITALS: BP 110/80; PULSE 81; O2SAT 97; BMI 23.3
--- NOTE | 2024-05-16 15:18 | MHC.PC.OV ---
Vital Signs 05/16/24 15:18 Height 5 ft 4 in Weight 136 lb BMI 23.3 BP 110/80 Blood Pressure Location Lt brachial Position Sitting Pulse 81 Pulse Source Pulse Oximeter Pulse Oximetry (%) 97 Oxygen Delivery Method Room Air Intake Visit Reasons: Discuss CT Results and Plan Instructional Media Services Technician Required: No Accompanied by: Self / Same As Patient Allergies No Known Allergies Allergy (Unknown, Verified 05/16/24 15:19) Tobacco use date assessed: 05/16/24 Dental Screening Dental Screen Date: 05/16/24 Did you have a dental visit in the last 12 months?: Yes Did you have a dental problem in the last 6 months where you did not have access to dental care?: No Was dental information given to patient?: Patient has dentist HPI Discuss CT Results and Plan HPI Details 58-year-old male presents to the office to discuss his chronic medical condition. In the last office visit, patient had presented with a swelling in the abdomen and minimal weight loss. An ultrasound and CT scan was done which have been unremarkable. Patient reports that he no longer feels the swelling. He has no further weight loss. His appetite is normal. Able to function for the same strength and energy. No nausea or vomiting. No change in bowel habits. [facility] Medical History (Updated 03/09/24 @ 10:00 by Miguel Victor MD) Coronary artery disease Tobacco use disorder Substance use disorder Social History Housing: House Patient Tobacco Use Status: Never used Tobacco e-Cigarette/Vaping Use: Never Used Second Hand Smoke Exposure: No service: No Cognitive needs: No Hearing needs: No Vision needs: No Questionnaire PHQ-9 Over the last 2 weeks, how often have you been bothered by any of the following problems? 1. Little interest or pleasure in doing things: not at all 2. Feeling down, depressed, or hopeless: not at all 3. Trouble falling or staying asleep, or sleeping too much: not at all 4. Feeling tired or having little energy: not at all 5. Poor appetite or overeating: not at all 6. Feeling bad about yourself - or that you are a failure or have let yourself or your family down: not at all 7. Trouble concentrating on things, such as reading the newspaper or watching television: not at all 8. Moving or speaking so slowly that other people could have noticed. Or the opposite - being so fidgety or restless that you have been moving around a lot more than usual: not at all 9. Thoughts that you would be better off or of hurting yourself in some way: not at all Total score: 0 Source: Developed by Drs. Elliott Saha, Yomaira Foy, Hill Summers and colleagues, with an educational mariann from [employer]. Thrive Questionnaire Date Thrive assessed: 05/16/24 I am a: Patient What is your living situation today?: I have a steady place to live Within the past 12 months, did the food you bought not last and you didn't have the money to get more?: Never true Within the past 12 months, did you worry whether your food would run out before you got money to buy more?: Never true Do you have trouble paying for medicines?: No Do you have trouble getting transportation to medical appointments?: No Do you have trouble paying your heating and electricity bill?: No Do you have trouble taking care of your child, family member or friend?: No Do you have trouble with day-to-day activities such as bathing, preparing meals, shopping, managing finances, etc.?: No Are you currently unemployed and looking for a job?: No Are you interested in more education?: No Please select the resources that you would like help with: None Currently or been in a relationship where the following occur: No concerns reported THRIVE Score: 0 AUDIT C Alcohol Use Questionnaire (AUDIT-C) 1. How often do you have a drink containing alcohol?: Never Total Score: 0 CRYSTAL-7 AMB Questionnaire CRYSTAL-7 Date CRYSTAL - 7 assessed: 05/16/24 Feeling nervous, anxious, or on edge: 0 = Not at all Not being able to stop or control worryin = Not at all Worrying too much about different things: 0 = Not at all Trouble relaxin = Not at all Being so restless that it is hard to sit still: 0 = Not at all Becoming easily annoyed or irritable: 0 = Not at all Feeling afraid as if something awful might happen: 0 = Not at all Total CRYSTAL-7 score (0-4 normal; 5-9 mild; 10-14 moderate; 15-21 severe): 0 Source: Developed by Drs. Elliott Saha, Yomaira Foy, Hill Summers and colleagues, with an educational mariann from [employer]. Physical exam (Primary Care) Vital Signs: Last Vital Signs Pulse 81 05/16/24 15:18 BP 110/80 05/16/24 15:18 Pulse Ox 97 05/16/24 15:18 Oxygen Delivery Method Room Air 05/16/24 15:18 BMI result Body Mass Index 23.3 Tobacco/Smoking Status: Tobacco use Status Tobacco use date assessed 05/16/24 05/16/24 15:22 Patient Tobacco Use Status Never used Tobacco 05/16/24 15:22 e-Cigarette/Vaping Use Never Used 05/16/24 15:22 PHQ-9: PHQ-9 Score PHQ-9: Total score 0 05/16/24 15:56 Thrive Assessment: Date of Thrive Assessment Date Thrive assessed 05/16/24 05/16/24 15:22 Currently or been in a relationship where the following occur: No concerns reported Const General: cooperative and healthy appearing Nutritional Appearance: well nourished Orientation/consciousness: patient oriented x3 Limitations: no limitations HENMT Head: Yes normal to inspection Eyes General: appearance normal, both eyes and all related structures Neck Neck: Yes normal visual inspection Chest Chest palpation & inspection: normal palpation of entire chest wall Resp Effort & Inspection: normal respiratory effort Neuro General: patient oriented x3 Assessment and Plan Assessment & Plan (1) Left lower quadrant abdominal mass: Code(s): R19.04 - Left lower quadrant abdominal swelling, mass and lump Plan: The lump is no longer palpable. CT scan an ultrasound of the area is unremarkable. Blood work is unremarkable. Patient was reassured. Coding Level of Care Code Est Pt Level 3 (10568) Diagnoses Left lower quadrant abdominal mass R19.04
== END 2024-05-16 16:13 | disposition home or self-care (01) ==
PROVIDERS: PCP Internal Medicine; Visit Provider Internal Medicine
DX: R19.04 Left lower quadrant abdominal swelling, mass and lump (principal)
CPT/HCPCS: 99213

== ENCOUNTER 2024-11-28 09:15 | Emergency (ER) | payer OTHER, SELFPAY ==
--- NOTE | ~2024-11-28 | CT_ITS ---
EXAMINATION: CT CHEST ANGIOGRAPHY WITH IV CONTRAST, CT ABDOMEN PELVIS ANGIOGRAPHY WITH IV CONTRAST INDICATION: chest pain with back pain r/o dissection COMPARISON: Comparison is made with the prior CT of the abdomen and pelvis dated 05/11/2024.. TECHNIQUE: CT scan of the chest, abdomen and pelvis was performed following administration of 80 mL Omnipaque 350 using standard departmental protocol. Images were obtained in the arterial phase to evaluate for dissection. Coronal and sagittal reformatted images were generated and reviewed. Oral contrast material was not administered at the request of the referring physician. This CT exam was performed with one or more of the following dose reduction techniques: automated exposure control, adjustment of the mA and/or kV according to patient size, use of iterative reconstruction technique. DLP: 107 mGy-cm CHEST: THYROID: The thyroid is unremarkable. LUNGS: There is a subcentimeter nodule along the right major fissure (series 6, image 30) compatible with an intrapulmonary lymph node. Minimal scarring is seen. Left lung base. The lungs are otherwise clear. MEDIASTINUM: There is no mediastinal lymphadenopathy. XANDER: There is no hilar lymphadenopathy. CARDIOVASCULATURE: The heart is normal in size. There is no pericardial effusion. The thoracic aorta is normal in caliber. No intimal flap is seen to suggest dissection. DEGREE OF CORONARY CALCIFICATION: not evaluable, due to dense contrast material the coronary arteries. PLEURA: There is no pleural effusion. No pneumothorax. MAIN AIRWAYS: The mainstem bronchi and proximal branches are patent. AXILLA: There is no axillary lymphadenopathy. SOFT TISSUES: Unremarkable. BONES: The bones are intact. ABDOMEN: LIVER: The liver is normal in size and contour. No liver mass is identified. GALLBLADDER / BILE DUCTS: The gallbladder is unremarkable. There is no intra or extrahepatic biliary ductal dilatation. SPLEEN: The spleen is normal in size. No focal splenic lesion is identified. PANCREAS: The pancreas is unremarkable in appearance. ADRENAL GLANDS: Within normal limits. KIDNEYS/RETROPERITONEUM: No renal calculi are identified. There is no hydronephrosis. No renal masses are identified. LYMPH NODES: No abdominal or pelvic lymphadenopathy. VASCULATURE: The abdominal aorta is normal in caliber without evidence of aneurysm or dissection. The celiac axis, superior mesenteric artery, inferior mesenteric artery, and bilateral renal arteries are widely patent. MESENTERY/PERITONEUM: No free fluid. No masses. There is no free intraperitoneal gas. STOMACH: The stomach is collapsed, limiting evaluation. SMALL BOWEL: The small bowel is normal in caliber. COLON: There is a large amount of stool throughout the colon. APPENDIX: Normal. URINARY BLADDER/PELVIC ORGANS: The urinary bladder is unremarkable. The uterus and ovaries are unremarkable. BONES / SOFT TISSUES: No suspicious bony or soft tissue abnormalities. CT/CT angio abdomen pelvis IMPRESSION: 1. No evidence of thoracoabdominal aortic dissection. 2. Large amount of stool throughout the colon. Electronically signed by: Elliott Gomez MD 11/28/2024 01:52 PM EDT
--- NOTE | 2024-11-28 09:18 | ECG_ITS ---
Test Reason : chest pain Blood Pressure : */* mmHG Vent. Rate : 85 BPM Atrial Rate : 85 BPM P-R Int : 158 ms QRS Dur : 86 ms QT Int : 350 ms P-R-T Axes : 33 49 41 degrees QTcB Int : 416 ms Normal sinus rhythm Moderate voltage criteria for LVH, may be normal variant ( Sokolow-Fiore , [employer]ej[employer] product ) Borderline ECG When compared with ECG of 06-Jul-2023 09:26, No significant change was found Referred By: Generic ED Physician Electronically Signed By: ALEXA CEBALLOS
[2024-11-28 09:20] VITALS: BP 108/69; BP 129/79; PULSE 83; PULSE 96; RESP 18; TEMP 36.4; O2SAT 96; O2SAT 98; BMI 24.0
[2024-11-28 09:40] LABS: MANUAL DIFF FLAG NO
[2024-11-28 09:42] LABS: Basophils Absolute Auto 0.1 X10*3/uL (0.0-0.2); Basophils Percent Auto 0.6 % (0-2); Eosinophils Absolute Auto 0.1 X10*3/uL (0.0-0.4); Eosinophils Percent Auto 0.8 % (0-4); Hematocrit 39.7 % (42.0-52.0); Hemoglobin 13.5 g/dl (14.0-18.0); Imm Gran Abs Auto 0.02 X10*3/uL (0.00-0.03); Imm Gran Pct Auto 0.2 % (0.0-0.4); Lymphocytes Absolute Auto 1.9 X10*3/uL (1.2-4.9); Lymphocytes Percent Auto 21.6 % (20-40); Mean Corpuscular Hemoglobin 26.2 pg (27.0-33.0); Mean Corpuscular Volume 77.1 fL (80.0-98.0); Mean Platelet Volume 8.6 fL (9.4-12.4); Monocytes Absolute Auto 0.8 X10*3/uL (0.1-1.2); Monocytes Percent Auto 9.7 % (2-11); Neutrophils Absolute Auto 5.8 x10*3/uL (2.0-8.3); Neutrophils Percent Auto 67.1 % (45-73); Platelet Count 319 X10*3/uL (160-400); Red Blood Count 5.15 X10*6/uL (4.60-5.80); Red Cell Distribution Width 13.6 % (11.0-16.0); White Blood Count 8.7 X10*3/uL (4.8-10.8)
[2024-11-28 09:58] LABS: Alanine Aminotransferase 18 U/L (0-40); Albumin Level 3.8 g/dL (3.5-5.0); Alkaline Phosphatase 121 U/L (39-117); Anion Gap 11 (12-20); Aspartate Amino Transferase 14 U/L (5-37); Bilirubin Total 0.4 mg/dL (0.0-1.0); Blood Urea Nitrogen 6 mg/dL (9-16); Calcium 9.2 mg/dL (8.4-10.2); Carbon Dioxide 22 mmol/L (22-29); Chloride 109 mmol/L (96-108); Estimated Glomerular Filt Rate > 60; Glucose Random 154 mg/dL (60-115); Potassium 4.1 mmol/L (3.3-5.1); Sodium 138 mmol/L (135-145); Total Protein 7.1 g/dL (6.5-8.0)
[2024-11-28 10:06] LABS: Troponin-I High Sensitivity 16.2 ng/L (<3.5-35.0)
--- NOTE | 2024-11-28 11:08 | ED_ITS ---
HPI - Chest Pain General Chief Complaint: Chest Pain Stated Complaint: CHEST/NECK/BACK PAIN X2D,WORSE W/BREATH PER EMS Time Seen by Provider: 11/28/24 10:23 Source: patient Mode of arrival: EMS Limitations: no limitations History of Present Illness HPI narrative: 59 year old male PMH: former substance abuse, MIs x4 who presents to the ER with 2 days of neck and upper shoulder pain on the left side 8/10 worse with a deep breath. Patient states he has had heart attacks in the past but has been here for similar without any concerns for his heart. The patient states he woke up with a pain in his reproducible with certain movements and taking a deep breath he denies history of dissection he denies any falls or injuries he denies nausea vomiting or diarrhea. MD complaint: chest pain Related Data Previous Rx's ?Medication ?Instructions ?Recorded cyclobenzaprine 10 mg tablet 10 mg PO BEDTIME PRN muscle spasm 07/06/23 #7 tabs ketorolac 10 mg tablet 10 mg PO TID PRN pain 5 days #15 07/06/23 tabs atorvastatin 10 mg tablet 10 mg PO BEDTIME #90 tabs 03/09/24 Allergies Allergy/AdvReac Type Severity Reaction Status Date / Time No Known Allergies Allergy Unknown Verified 11/28/24 09:28 Review of Systems 2 Review of Systems: Review of systems: General: Patient denies any fever chills recent illness or falls Musculoskeletal: back pain denies any or body aches or other injuries HEENT: denies headache, runny nose, ear pain Respiratory: denies shortness of breath, cough Cardiovascular:chest pain no palpitations : denies dysuria, frequency Abdomen: no nausea vomiting denies abdominal pain Extremities: no swelling, no pain Skin: no diaphoresis Yes all other systems are reviewed and are negative [facility] Past Medical History Medical History (Updated 11/28/24 @ 14:02 by Fidencio Argueta DO) Coronary artery disease Tobacco use disorder Substance use disorder Social History Social History Housing: House Patient Tobacco Use Status: Never used Tobacco e-Cigarette/Vaping Use: Never Used Second Hand Smoke Exposure: No Advance Directives: No Advance Directives Information Provided: Yes service: No Cognitive needs: No Hearing needs: No Vision needs: No Physical Exam 2 Vital Signs: Vital Signs: Last Vital Signs Temp 98.6 F 11/28/24 13:20 Pulse 16 L 11/28/24 13:20 Resp 16 11/28/24 13:20 BP 106/64 11/28/24 13:20 Pulse Ox 97 11/28/24 13:20 O2 Del Method Room Air 11/28/24 13:20 BMI result Body Mass Index 24.0 Neurological exam: CN II- XII tested. Patient is alert and oriented to person place and time. Patient has no dysphagia or dysarthia, denies good vision in all four vision narvaez no nystagmus on exam, good strength to upper and lower extremities with normal reflexes to brachioradialis, wrist, patella and achilles. Negative romberg, good finger to nose and heel to jiménez. General: Well-appearing well-nourished in no signs of distress HEENT: Normocephalic atraumatic Neck: No signs of JVD, no masses no tenderness or lymphadenopathy Cardiovascular: Regular rate and rhythm Respiratory: Clear to auscultation bilaterally Abdomen: Soft nontender no masses Extremities: Normal pedal pulses no signs of edema Skin: Dry warm no rashes Back: No tenderness full ROM Course Reevaluation(s) Reevaluation #1: CT is negative patient is sleeping comfortably in the room I did explain his CT results patient is just pending his 2nd troponin which will be drawn at this time. Time: 14:00 Reevaluation #2: Repeat troponin is negative I do feel comfortable discharging the patient home he is happy with the plan to follow up Time: 14:57 Medications Administered Discontinued Medications Generic Name Dose Route Start Last Admin Trade Name Silke PRN Reason Stop Dose Admin Acetaminophen 650 mg 11/28/24 11:14 11/28/24 11:34 Acetaminophen 325 Mg Tablet PO 11/28/24 11:15 650 mg ONCE ONE Administration Sodium Chloride 1,000 mls @ 999 mls/hr 11/28/24 11:15 11/28/24 11:36 Ns IV 11/28/24 12:15 999 mls/hr .Q1H1M RJ Administration Iohexol 100 ml 11/28/24 13:25 11/28/24 13:25 Iohexol 350 Mg/Ml 100 Ml Infus..Btl IV 11/28/24 13:26 80 ml ONCE ONE Administration Ketorolac Tromethamine 15 mg 11/28/24 11:14 11/28/24 11:36 Ketorolac Tromethamine 15 Mg/Ml Vial IVPUSH 11/28/24 11:15 15 mg ONCE ONE Administration Lidocaine 1 patch 11/28/24 11:31 11/28/24 11:43 Lidocaine 4 % Patch Adh..Patch TRANSDERMA 11/28/24 11:32 1 patch ONCE ONE Administration Protocol Medical Decision Making Medical Decision Making [facility] Narrative: You think this is more likely back pain pain is reproducible patient looks otherwise well has coronary artery disease history but is fidgety and appears to be in pain has not tried Tylenol ibuprofen up to this point I will treat the patient with Tylenol Toradol fluids as well as a lidocaine patch I will get a 2nd troponin send the patient for a CTA dissection protocol Differential Diagnosis Differential Diagnoses: The differential diagnosis associated with the presentation includes Back strain back pain coronary disease he is on the differential though less likely as the patient looks very well and has a normal EKG aortic dissection is also in the differential pneumonia COVID flu RSV body aches Lab Data [facility] Lab Attestation statement: I reviewed the patient's lab results. 11/28/24 09:30 11/28/24 09:30 Labs: Lab Results 11/28/24 11/28/24 Range/Units 09:30 14:04 WBC 8.7 (4.8-10.8) X10*3/uL RBC 5.15 (4.60-5.80) X10*6/uL Hgb 13.5 L (14.0-18.0) g/dl Hct 39.7 L (42.0-52.0) % MCV 77.1 L (80.0-98.0) fL MCH 26.2 L (27.0-33.0) pg MCHC 34.0 (31.0-36.0) g/dl RDW 13.6 (11.0-16.0) % Plt Count 319 (160-400) X10*3/uL MPV 8.6 L (9.4-12.4) fL Immature Gran % (Auto) 0.2 (0.0-0.4) % Neut % (Auto) 67.1 (45-73) % Lymph % (Auto) 21.6 (20-40) % [place] % (Auto) 9.7 (2-11) % Eos % (Auto) 0.8 (0-4) % Baso % (Auto) 0.6 (0-2) % Lymph # (Auto) 1.9 (1.2-4.9) X10*3/uL [place] # (Auto) 0.8 (0.1-1.2) X10*3/uL Eos # (Auto) 0.1 (0.0-0.4) X10*3/uL Baso # (Auto) 0.1 (0.0-0.2) X10*3/uL Abs Immat Gran (auto) 0.02 (0.00-0.03) X10*3/uL Absolute Neuts (auto) 5.8 (2.0-8.3) x10*3/uL Absolute Nucleated RBC 0.000 (0.0-0.012) X10*3/uL Nucleated RBC % (auto) 0.0 (0.0-0.2) /100WBC Sodium 138 (135-145) mmol/L Potassium 4.1 (3.3-5.1) mmol/L Chloride 109 H (96-108) mmol/L Carbon Dioxide 22 (22-29) mmol/L Anion Gap 11 L (12-20) BUN 6 L (9-16) mg/dL Creatinine 0.91 (0.5-1.4) mg/dL Estim Creat Clear Calc 74.0 Estimated GFR > 60 Random Glucose 154 H (60-115) mg/dL Calcium 9.2 (8.4-10.2) mg/dL Magnesium 2.0 (1.6-2.6) mg/dL Total Bilirubin 0.4 (0.0-1.0) mg/dL AST 14 (5-37) U/L ALT 18 (0-40) U/L Alkaline Phosphatase 121 H (39-117) U/L Troponin I High Sens 16.2 14.5 (<3.5-35.0) ng/L Total Protein 7.1 (6.5-8.0) g/dL Albumin 3.8 (3.5-5.0) g/dL Influenza Type A (PCR) NEGATIVE (Negative) Influenza Type B (PCR) NEGATIVE (Negative) RSV RNA Qual (PCR) NEGATIVE (Negative) SARS-CoV-2 RNA (RT-PCR) NEGATIVE (Negative) Independent Interpretation I performed an independent interpretation of an: EKG Interpretation: Rate 85 EKGs slightly different than previous with some hyperacute T-waves in V3 compared to old ones but otherwise does not show any other obvious EKG changes old man 1 lead I will treat the patient and reassess. Discharge Plan Discharge Clinical Impression: Atypical chest pain, Back pain Patient Disposition: Home, Self-Care Instructions: Chest Pain (DC), Back Pain (ED) Additional Instructions: You were seen today for back pain and chest pain. You had CTs done of the chest abdomen and pelvis which did not show any abnormality other than a large stool burden meaning your likely constipated. You also had labs done which did not show any signs of ischemia or affects on the heart. I do recommend taking Tylenol or ibuprofen for the pain at home. If you have any other concerns please return to the ER. Prescriptions: No Action cyclobenzaprine 10 mg tablet 10 mg PO BEDTIME PRN (Reason: muscle spasm) Qty: 7 0RF ketorolac 10 mg tablet 10 mg PO TID PRN (Reason: pain) 5 Days Qty: 15 0RF atorvastatin 10 mg tablet 10 mg PO BEDTIME Qty: 90 1RF Print Language: [place]
[2024-11-28] MEDS: Acetaminophen 325 MG TABLET 650 MG PO (11:34)
[2024-11-28] MEDS: Ketorolac Tromethamine 15 MG/ML VIAL IVPUSH (11:36)
[2024-11-28] MEDS: 0.9 % Sodium Chloride 1,000 ML 999 ML IV (11:36)
[2024-11-28] MEDS: Lidocaine 4 % Patch ADH..PATCH 1 PATCH TRANSDERMA (11:43)
[2024-11-28 13:20] VITALS: BP 106/64; PULSE 16; RESP 16; TEMP 37; O2SAT 97
[2024-11-28] MEDS: iohexoL 350 MG/ML 100 ML INFUS..BTL IV (13:25)
[2024-11-28 14:50] LABS: Troponin-I High Sensitivity 14.5 ng/L (<3.5-35.0)
[2024-11-28 14:54] LABS: Influenza A PCR NEGATIVE (Negative); Influenza B PCR NEGATIVE (Negative); Resp Syncy Virus RNA Qual PCR NEGATIVE (Negative); SARS COV2 PCR INHOUSE NEGATIVE (Negative)
[2024-11-28 15:42] VITALS: BP 106/64; PULSE 16; RESP 16; TEMP 37; O2SAT 97
== END 2024-11-28 15:42 | disposition home or self-care (01) ==
PROVIDERS: Emergency Provider Student in an Organized Health Care Education/Training Program; PCP Internal Medicine
DX: R07.89 Other chest pain (principal); M54.6 Pain in thoracic spine; Z03.818 Encounter for observation for suspected exposure to other biological agents ruled out
CPT/HCPCS: 0241U; 36415; 71275; 74174; 80053; 83735; 84484; 85025; 93005; 96374; 99284; J1885; Q9967

== ENCOUNTER → 2024-11-28 09:18 | Outpatient (BNV) | payer OTHER, SELFPAY | PROVIDERS: Emergency Provider Student in an Organized Health Care Education/Training Program; PCP Internal Medicine; Visit Provider Internal Medicine | DX: R07.9 Chest pain, unspecified (principal) | CPT/HCPCS: 93010 ==

== ENCOUNTER → 2024-11-28 11:12 | Outpatient (BNV) | payer OTHER, SELFPAY | PROVIDERS: Emergency Provider Student in an Organized Health Care Education/Training Program; PCP Internal Medicine; Visit Provider Radiology Diagnostic Radiology | DX: K56.41 Fecal impaction (principal); R07.9 Chest pain, unspecified | CPT/HCPCS: 71275; 74174 ==